=== PATIENT | male | born 1965 | race Caucasian/White ===

== ENCOUNTER 2023-01-10 14:05 | Outpatient (CLI) | payer BC, SELFPAY ==
--- NOTE | ~2023-01-10 | US_ITS ---
EXAMINATION: US art doppler w press LE DATE: 01/10/2023 15:50 INDICATION: Peripheral arterial disease. TECHNIQUE: Segmental pressures and plethysmographic and Doppler waveforms of the brachial and lower e xtremity arteries were obtained. COMPARISON: None. FINDINGS: Right and left brachial artery pressures of 132 mm Hg and 138 mm Hg, respectively, are concordant (no rmal difference <= 30 mmHg). The right high-thigh pressure index is 1.50 (normal > 1.2). The right ankle-brachial index (DARCIE) is 1 .09 (normal >= 0.9-1.0). The right great toe-brachial index (TBI) is 0.81 (normal >= 0.65). Arterial Doppler waveforms are triphasic in common femoral artery and biphasic from superficial femoral artery to the ankle. The left high-thigh pressure index is 1.89. The left DARCIE is 1.09. The left TBI is 0.88. Arterial Dopp ler waveforms are triphasic in common femoral artery, biphasic from superficial femoral artery to pos terior tibial artery, and triphasic in dorsalis pedis IMPRESSION: 1. No significant arterial occlusive disease. Reviewed, dictated and finalized at location A. ALDERMAN
== END 2023-01-10 14:06 | disposition home or self-care (01) ==
PROVIDERS: Visit Provider Podiatrist Foot & Ankle Surgery
DX: I73.9 Peripheral vascular disease, unspecified (principal)
CPT/HCPCS: 93923

== ENCOUNTER 2024-01-10 15:00 | Outpatient (CLI) | payer BC, SELFPAY ==
--- NOTE | ~2024-01-10 | CT_ITS ---
CLINICAL INDICATION: Right flank pain COMPARISON: 06/27/2014. TECHNIQUE: Multiple contiguous axial images of the abdomen and pelvis were performed without the admi nistration of intravenous contrast The dose-length product (DLP) was 1005.86 mGy-cm. Automated exposure control and iterative reconstruction technique were employed. FINDINGS/OBSERVATIONS: Visualized lower thorax: The bilateral lung bases are clear. The heart is enlarged (unchanged), without pericardial effusion. Small hiatal hernia is present. Liver: The liver demonstrates homogeneous attenuation and is not enlarged measuring 18 cm in longitudinal di mension. Gallbladder and biliary system: The gallbladder is only minimally distended, and otherwise unremarkable. Pancreas: Limited evaluation of the pancreas secondary to the lack of intravenous contrast. Spleen: The spleen demonstrates homogeneous attenuation and is not enlarged measuring 9 cm in longitudinal di mension. Kidneys: Right-sided hydroureteronephrosis secondary to a 7 mm calculus in the proximal third of the right ure ter. Multiple bilateral renal calculi are present. The largest on the right measures 12 mm and is located within the upper pole the largest on the left measures 7 mm, located within the interpolar region. Adrenal glands: Unremarkable. Gastrointestinal tract: Colonic diverticulosis without surrounding inflammatory change. Appendix: The air-filled appendix is of normal caliber (axial series, images 128-135) Vasculature: Unremarkable. Lymph nodes: No pathologically enlarged or morphologically suspicious lymph nodes within the retroperitoneum or at the root of the mesentery. Pelvic structures: The bladder is distended, and otherwise unremarkable. The prostate gland is not enlarged. Body wall and musculoskeletal: Small fat-containing umbilical hernia. Moderate degenerative disease within the lumbosacral spine with osteophyte formation, disc space narr owing, endplate changes and facet arthropathy. Grade 1 anterolisthesis of L5 onto S1 is also present. IMPRESSION: Right-sided hydroureteronephrosis secondary to a 7 mm calculus within the proximal right ureter Reviewed, dictated and finalized at location A. EDGE INKER MACHINE IMPRESSION: Right-sided hydroureteronephrosis secondary to a 7 mm calculus within the proxi mal right ureter
== END 2024-01-10 15:01 | disposition home or self-care (01) ==
PROVIDERS: PCP Family Medicine; Visit Provider Urology
DX: N20.1 Calculus of ureter (principal)
CPT/HCPCS: 74176

== ENCOUNTER 2024-01-11 12:13 | Outpatient (CLI) | payer BC, SELFPAY ==
--- NOTE | 2024-01-11 12:24 | ECG_ITS ---
Test Date: 2024-01-11 12:33:26 Measurements Intervals [place] Rate: 80 P: 22 NC: 159 QRS: -42 QRSD: 116 T: 88 QT: 372 QTc: 431 Interpretive Statements SINUS RHYTHM LEFT AXIS DEVIATION INTRAVENTRICULAR CONDUCTION DELAY PATTERN CONSISTENT WITH PULMONARY DISEASE INFERIOR INFARCT, AGE INDETERMINATE NONSPECIFIC T-WAVE ABNORMALITY- HIGH LATERAL LEADS BASELINE ARTIFACT- I, II ABNORMAL ECG No previous ECG available for comparison Electronically Signed On 01-11-2024 12:55:05 GLASS BEVELLER by Doron Meza D.O.
[2024-01-11 12:36] LABS: Anion Gap 8 mmol/L (4-12); Blood Urea Nitrogen 15 mg/dL (7-18); Calcium 9.2 mg/dL (8.5-10.1); Carbon Dioxide 29 mmol/L (21-32); Chloride 100 mmol/L (98-108); Estimated Glomerular Filt Rate 53; Glucose 237 mg/dL (70-99); Osmolality Calculated 292 mOsm/kg (285-295); Potassium 4.6 mmol/L (3.5-5.1); Sodium 137 mmol/L (136-145)
== END 2024-01-11 12:14 | disposition home or self-care (01) ==
LOC: CHSLAB 12:16
PROVIDERS: PCP Family Medicine; Visit Provider Anesthesiology
DX: Z01.818 Encounter for other preprocedural examination (principal); E11.9 Type 2 diabetes mellitus without complications; I10 Essential (primary) hypertension; R94.31 Abnormal electrocardiogram [ECG] [EKG]
CPT/HCPCS: 36415; 80048; 93005

== ENCOUNTER 2024-01-12 05:17 | Day surgery (SDC) | payer BC, SELFPAY ==
[2024-01-11 10:41] VITALS: BMI 44.9
--- NOTE | 2024-01-11 11:00 | PC.NURSE ---
Report to the Outpatient Waiting Room, entrance under the green pavilion located off [facility], at time ___11:00AM____ on date ____01/12/24___. Planned Procedure Time: ___1:00PM .? Time changes happen often and if your time is changed the preop area will call you the afternoon before. - You and your visitor will be asked to self-screen and do not enter if you have any COVID symptoms. Please call surgeon if you need to reschedule. - A mask is optional within the hospital at this time. Patients may have clear liquids (water, carbonated beverages, clear teas, apple juice) until 3 hours prior to surgery with a maximum of 20 ounces. - No food from midnight until time of surgery and no smoking - Infants may have breast milk until 4 hours before surgery, formula 6 hours prior to surgery. - Children will be allowed to drink immediately following surgery.? If applicable, please bring a bottle or sippy cup to assist with drinking. Juice, water, soda, and popsicles are readily available.? For infants on formula, please bring formula the day of surgery.? Pacifiers are allowed. Take only the following medications with a SIP of water on the morning of surgery: ____CITALOPRAM & METOPROLOL. MAY TAKE HYDROCODONE AND ZOFRAN NEEDED. DO NOT STOP ANY OF YOUR OTHER PRESCRIPTION MEDICATIONS PRIOR TO SURGERY EXCEPT THE FOLLOWING Medications to discontinue per physician NONE Date to take last dose Please no make-up, nail maori, hairspray, perfume, deodorant, or body powder the day of surgery.? No jewelry (including any body piercings) or valuables the day of surgery, leave them at home.? Please take a shower or bath the night before, or the morning of, surgery with an antibacterial soap.? Wear comfortable, loose fitting clothing.? Children are encouraged to wear pajamas. - Jewelry must be removed prior to entering the operating room.? Rings and piercings that are not removed may be cut off. - The hospital will not accept responsibility for valuables.? - Please leave all valuables, including medications, at home the day of surgery. If you are going home after surgery, a licensed restaurant delivery driver must drive you home.? - NO public transportation without another adult if you receive anesthesia. - We recommend that an adult stay with you for 24 hours following discharge. - We also recommend that you do not drive, make important decision, drink alcoholic beverages, or take any drugs that were not prescribed by your health care provider for at least 24 hours after your discharge time. For Pediatric surgeries, we recommend two adults accompany the child home. Follow any additional instructions given to you from your surgeon. Telephone instructions given to ____PATIENT and asked if any additional questions and then verbalized understanding. Patient advised to call surgeon office or pre surgery nurse liaison [phone] if any additional questions.
[2024-01-12] VITALS (8 sets, daily range): BP systolic 100–148; BP diastolic 66–90; PULSE 71–86; RESP 12–18; TEMP 36.5–36.6; O2SAT 94–100
--- NOTE | ~2024-01-12 | XR_ITS ---
EXAMINATION: XR stent kub - surgery DATE: 01/12/2024 13:08 INDICATION: Right ureteral stone. TECHNIQUE: 4 intraoperative fluoroscopic views of the abdomen and pelvis were obtained. I was not pre sent. Fluoroscopy exposure time was 27 seconds. COMPARISON: CT abdomen and pelvis 01/10/2024 FINDINGS: There is a right internal ureteral stent in expected position. IMPRESSION: 1. Right internal ureteral stent in expected position. Reviewed, dictated and finalized at location A. R FINISHER
--- NOTE | 2024-01-12 06:09 | WPDHPUPDATE1 ---
History and Physical Update Update Date/Time: 01/12/24 06:09 History and Physical has been reviewed, including an updated exam of the patient. There are NO changes in the patient's condition. Risks, benefits, and alternatives have been discussed and questions answered. Patient agrees to proceed with procedure.
[2024-01-12] MEDS: LACTATED RINGERS 1,000 ML 30 ML IV CONT (11:45)
[2024-01-12 11:58] LABS: Glucose Point of Care 186 mg/dl (65-105)
--- NOTE | 2024-01-12 11:58 | P.PNAN_ITS ---
Anes - Initial Pre Proc Eval Procedure: Operation Date: 01/12/24 13:00 Proposed Procedures p Cystoscopy, Right Ureteroscopy, Holmium Laser Lithotripsy, Right Stone Extraction, Possible Right Retrograde Pyelography, Possible Right Stent Placement - Shan Sánchez MD Date/Time: 01/12/24 11:58 Surgeon: Shan Sánchez MD Pre Op Diagnosis: Ureteral Kidney Stone (stuck) Patient Data Age: 58 Gender: M Height: 1.7 m Weight: 130 kg Allergies Allergy/AdvReac Type Severity Reaction Status Date / Time No Known Allergies Allergy Unverified 01/12/24 11:52 Home Medications Medication Instructions Recorded Confirmed Type allopurinol 300 mg tablet 300 mg PO DAILY 01/11/24 01/11/24 History citalopram 20 mg tablet 20 mg PO QAM 01/11/24 01/11/24 History glimepiride 4 mg tablet 4 mg PO QAM 01/11/24 01/11/24 History hydrocodone 5 mg-acetaminophen 325 1 tablet PO Q6-8H PRN Pain 01/11/24 01/11/24 History mg tablet insulin glargine-yfgn 100 unit/mL 23 unit subcut HS 01/11/24 01/11/24 History (3 mL) subcutaneous pen losartan 50 mg tablet 50 mg PO QAM 01/11/24 01/11/24 History metoprolol succinate 100 mg 100 mg PO QAM 01/11/24 01/11/24 History tablet,extended release 24 hr ondansetron 8 mg disintegrating 8 mg PO Q4-8H PRN Nausea And 01/11/24 01/11/24 History tablet Vomiting semaglutide 2 mg/dose (8 mg/3 mL) 2 mg subcut WEEKLY 01/11/24 01/11/24 History subcutaneous pen injector (Ozempic) simvastatin 20 mg tablet 20 mg PO QAM 01/11/24 01/11/24 History sitagliptin phos 50 mg-metformin 1 tablet PO BID 01/11/24 01/11/24 History ER 1,000 mg tablet,extend rel 24h mp (Janumet XR) Patient hx anesthesia problems: none Family hx anesthesia problems: none Results Review: All pre-operative results and documents have been reviewed as part of the pre- operative evaluation. [facility] [place] Past Medical History Medical History (Updated 01/12/24 @ 11:58 by Omer Gibbs MD) Diabetes HTN (hypertension) Morbid obesity Surgical History Surgical History (Updated 01/12/24 @ 12:01 by Omer Gibbs MD) H/O colonoscopy H/O hernia repair Social History Social History Smoking status: Never smoker Alcohol intake: current Drinks per week: 1 Living arrangements: with family Additional living arrangements comments: SPOUSE AND 2 CHILDREN Spiritual care concerns: No Anes - Eval Final PreProcedure Day of Procedure 01/12/24 11:58 Patient weight: morbidly obese Heart: regular rate and rhythm Lungs: clear to auscultation Airway: Mallampati scale class II Neurological: alert and oriented Last oral intake: >/= 8 hours ASA classification: III Emergent: no Anesthetic plan: proceed Anesthesia type and monitoring: general LMA and standard monitoring Results Review: All pre-operative results and documents have been reviewed as part of the pre- operative evaluation. Informed Consent: The patient's anesthetic plan and its attendant risks and benefits were discussed with the patient/family/POA. Questions were solicited and answers provided to the satisfaction of the patient/family/POA.
[2024-01-12] MEDS: ceFAZolin 3 GM/D5W 100 ML 100 ML IVPB (12:26)
[2024-01-12] MEDS: LIDOCAINE HCL 2% GEL UROJET 10 ML PKG MUCOUS MEM (13:14)
[2024-01-12 13:26] LABS: Glucose Point of Care 155 mg/dl (65-105)
--- NOTE | 2024-01-12 13:45 | W.PM.PROC2 ---
Procedure Note - Detailed Date of Procedure 01/12/24 Pre-op Diagnosis Right renal and right ureteral calculus Post-op Diagnosis Same Procedure Performed cystoscopy, right ureteroscopy with laser lithotripsy, stone extraction and stent placement Surgeon Shan Sánchez MD Anesthesia General Description of Procedure patient is brought to the operative suite was prepped draped in routine sterile fashion while in dorsal lithotomy position after the uneventful induction of a general LMA anesthetic. Cystoscopy was undertaken with a 19 F rigid cystoscope. There was no urethral stricture and minimal prostatic hyperplasia. Bladder mucosa is normal. There was no intravesical foreign body or neoplasm. A 0.035 in glidewire was advanced in the right renal pelvis and the distal ureter was dilated with an 8 F 10 F dilator. The safety wire was placed followed by an 11 F / 13 F ureteral access sheath. Ureteroscopy was undertaken with a flexible digital ureteral scope. His 7 mm right proximal ureteral stone is pushed back into upper pole calyx. Using a 200 micron Dada laser fiber both that stone and a 10-12 mm right mid calyceal stone our fraction and a tiny pieces using a dusting mode. Any sizable pieces are extracted with a 1.9 F disposable stone basket. All pieces left were estimated to be less than 3 mm in size. Ureteral scope was removed and a 4.8 F variable length stent is positioned with the proximal coil in the renal pelvis and distal coil in the bladder. Scopes and wires removed and he was taken recovery room good condition. Drains No Pathology None sent Complications No immediate complications Condition Stable Disposition PACU
== END 2024-01-12 14:41 | disposition home or self-care (01) ==
PROVIDERS: PCP Family Medicine; Visit Provider Urology
PROC: (CPT 52352; principal; 2024-01-12 13:00)
DX: N20.2 Calculus of kidney with calculus of ureter (principal); E11.9 Type 2 diabetes mellitus without complications; I10 Essential (primary) hypertension; E66.01 Morbid (severe) obesity due to excess calories; Z68.41 Body mass index [BMI] 40.0-44.9, adult; Z79.4 Long term (current) use of insulin; Z79.85 Long-term (current) use of injectable non-insulin antidiabetic drugs; Z79.84 Long term (current) use of oral hypoglycemic drugs
CPT/HCPCS: 52356; 82365; 82948; 88300; C1769; C1894; C2617; J0690; J1100; J2405; J2704; J7120

== ENCOUNTER 2024-12-24 09:29 | Outpatient (CLI) | payer BC, SELFPAY ==
--- NOTE | ~2024-12-24 | XR_ITS ---
Abdominal radiograph(s) INDICATION: Calculus of ureter COMPARISON: CT abdomen and pelvis 01/10/2024 TECHNIQUE: 2 views supine AP abdomen FINDINGS: Scattered colonic gas and stool. Small bowel loops not well seen. No evidence of organomegaly. 5 mm stone left kidney. No ureteral or bladder calculi identified. No acute bony abnormality. IMPRESSION: 1. 5 mm stone left kidney. Reviewed, dictated and finalized at location R. IMPRESSION: 1. 5 mm stone left kidney.
== END 2024-12-24 09:30 | disposition home or self-care (01) ==
LOC: MICIMG 09:31
PROVIDERS: PCP Urology; Visit Provider Urology
DX: N20.1 Calculus of ureter (principal)
CPT/HCPCS: 74018